=== PATIENT | female | born 1955 | race Caucasian/White ===

== ENCOUNTER 2019-08-02 19:55 | Emergency (ER) | payer BC, OTHER ==
[2019-08-02] MEDS ORDERED: Ondansetron PF 4 MG/2 ML Vial ONE (20:20)
[2019-08-02] MEDS ORDERED: Morphine 4 MG/ML VIAL ONE (20:20)
[2019-08-02 20:59] LABS: #Basophils 0.1 thou/uL (0.0-0.2); #Eosinphils 0.2 thou/uL (0.0-0.7); #Lymphocytes 2.1 thou/uL (1.20-3.40); #Neutrophils 13.8 thou/uL (1.40-6.50); %Basophils 0.5 % (0.0-1.0); %Eosinophils 1.1 % (0.0-10.0); %Lymphocytes 12.3 % (21.0-51.0); %Monocytes 5.8 % (0.0-10.0); %Neutrophils 80.3 % (42.0-75.0); Hemoglobin 14.3 g/dL (12.0-16.0); Mean Corpuscular HGB CONC 34.7 g/dL (32.0-36.0); Mean Corpuscular Hemoglobin 33.9 pg (27.0-31.0); Mean Corpuscular Volume 97.6 fL (78.0-98.0); Platelet Count 205 thou/uL (130-400); RBC Distribution Width 11.8 % (11.5-14.5); Red Blood Cell (RBC) Count 4.22 mill/uL (4.20-5.40); White Blood Cell (WBC) Count 17.2 thou/uL (4.8-10.8)
[2019-08-02 21:04] LABS: Bilirubin Small (Negative); Blood, Urine Large (Negative); Glucose, Urine (Dipstick) 100 mg/dL (Negative); Leukocyte Large (Negative); Nitrite Positive (Negative); Protein, Urine (Dipstick) > or equal to 300 mg/dL (Neg-Trace)
[2019-08-02 21:05] LABS: Clarity Cloudy (Clear)
[2019-08-02 21:09] LABS: Bacteria/HPF 4+ HPF (None Seen); RBC/HPF Greater than 50 HPF (0-3); Squamous Epithelial 0-3 HPF (0-3); WBC/HPF Greater Than 50 HPF (0-3)
[2019-08-02 21:10] LABS: Renal Epithelial 0-3 HPF (None Seen)
[2019-08-02 21:14] LABS: ALT (SGPT) 33 U/L (8-55); AST (SGOT) 21 U/L (5-34); Albumin 4.3 g/dL (3.4-4.8); Alkaline Phosphatase 67 U/L (40-110); Anion Gap 16 mmol/L (10-20); BUN (Urea Nitrogen) 18 mg/dL (9.8-20.1); Calc. Creatinine Clearance 0 mL/min (70-130); Carbon Dioxide 23 mmol/L (23-31); Chloride 102 mmol/L (98-107); Estimated GFR-MDRD 60; Glucose 214 mg/dL (80-115); Lipase 98 U/L (8-78); Potassium 3.9 mmol/L (3.5-5.1); Protein, Total 7.3 g/dL (6.0-8.3); Sodium 137 mmol/L (136-145)
--- NOTE | 2019-08-02 21:22 | CT ---
CT Stone Protocol HISTORY: Bilateral flank pain. Urinary frequency. Hematuria COMPARISON: None. FINDINGS: The lung bases are clear. The liver, spleen and pancreas regions appear unremarkable on this noncontrast study. The gallbladder has been removed. Right and left adrenal glands and right and left kidneys are normal in size. No renal calculi or obst ruction there is bilateral periureteral fat stranding extending to the bladder. The bladder is not distended. There is no significant periaortic or mesenteric adenopathy. CT of pelvis performed without contrast enhancement: No adenopathy, mass or free fluid. The patient i s status post appendectomy by history. IMPRESSION: Bilateral symmetric periureteral fat stranding, this could be chronic or related some typ e of acute inflammatory process, some slight indistinctness to the bladder wall raises the possibility of a coexistent cystitis. Clinical correlation is recommended.
[2019-08-02] MEDS ORDERED: cefTRIAXone\\ROCEPHIN 2 GM VIAL ONE (22:00)
== END 2019-08-02 23:50 | disposition home or self-care (01) ==
LOC: ERS 19:55
DX: N12 Tubulo-interstitial nephritis, not specified as acute or chronic (principal); I10 Essential (primary) hypertension; E11.9 Type 2 diabetes mellitus without complications; I11.0 Hypertensive heart disease with heart failure; I50.9 Heart failure, unspecified; I25.2 Old myocardial infarction
CPT/HCPCS: 74176; 80053; 81003; 81015; 83690; 85025; 87077; 87086; 87186; 96365; 96375; J0696; J2270; J2405